=== PATIENT | female | born 1955 | race Two or more races ===

== ENCOUNTER 2024-02-07 14:08 | Emergency (ER) | payer OTHER ==
[~2024-02-07] VITALS: Ht 157.5 cm; Wt 49.9 kg
[2024-02-07] MEDS ORDERED: ROSUVASTATIN CA10 MG PO (15:04)
[2024-02-07] MEDS ORDERED: ACETAMINOPHEN 500 MG GEL..CAP PO ONE (15:15)
[2024-02-07 17:27] LABS: HEMATOCRIT 39.7 % (36.0-45.00); MEAN CELL VOLUME 89.4 fL (80.00-100.00); MEAN CORPUSCULAR HEMOGLOBIN 31.5 pg (27.00-32.0); MEAN CORPUSCULAR HGB CONC 35.2 g/dl (32.0-36.0); PLATELET COUNT 234 K/uL (150-450); RED BLOOD COUNT 4.44 M/uL (4.00-6.00); RED CELL DISTRIBUTION WIDTH 14.2 % (11.5-14.5)
== END 2024-02-07 18:01 | disposition home or self-care (01) ==
LOC: ER 14:10
PROVIDERS: General Practice
DX: R53.81 Other malaise (principal); J06.9 Acute upper respiratory infection, unspecified; Z20.822 Contact with and (suspected) exposure to COVID-19